=== PATIENT | female | born 1985 | race Caucasian/White ===

== ENCOUNTER 2016-08-15 03:01 | Emergency (ER) | payer OTHER ==
[~2016-08-15] VITALS: Ht 175.3 cm; Wt 126.9 kg
[2016-08-15 03:05] VITALS: Ht 175.3 cm; Wt 126.9 kg
[2016-08-15] MEDS ORDERED: SODIUM CHLORIDE 0.9% 1000ML 1,000 ML IV ONE ×2 (03:30)
[2016-08-15 03:41] VITALS: TEMP 36.1
[2016-08-15 03:42] LABS: BASO % 0.2 %; BASO ABS # 0.03 K/uL (0-0.2); COMPLETE YES; EOS % 0.6 %; HEMATOCRIT 37.3 % (37-47); IG% 0.3 %; LYMPH % 14.3 %; MEAN CORPUSCULAR HEMOGLOBIN 28.6 pg (25-34); MONO % 4.2 %; NEUT % 80.4 %; PLATELET COUNT 367 K/uL (130-400); RED BLOOD COUNT 4.44 M/uL (4.2-5.4); WHITE BLOOD COUNT 14.68 K/uL (4.8-10.8)
[2016-08-15] MEDS ORDERED: ONDANSETRON INJ 2 MG/ML 2 ML VIAL IV STA ×2 (04:03→05:48)
[2016-08-15 04:06] LABS: BUN/CREATININE RATIO 13.5 (10-20); CALCIUM 8.5 mg/dl (8.5-10.1); CREATININE 0.91 mg/dl (0.60-1.20); POTASSIUM 3.2 mmol/L (3.5-5.1)
[2016-08-15 04:09] LABS: ALB/GLOB RATIO 0.9 (0.9-2)
[2016-08-15] MEDS ORDERED: BCPILLS PO (04:13)
[2016-08-15 04:37] LABS: URINE BILIRUBIN NEG (NEG); URINE COLOR YELLOW; URINE NITRITE NEG (NEG); URINE PH 5.5 (4.5-7.5); URINE SPECIFIC GRAVITY >= 1.030 (1.000-1.030); UROBILINOGEN NEG (NEG)
[2016-08-15 04:48] LABS: MANUAL MICROSCOPIC REQUIRED? NO; REVIEW REQ? NO
[2016-08-15 04:49] LABS: URINE APPEARANCE CLOUDY (CLEAR); ZZUR CULT IF INDIC CLEAN CATCH YES
[2016-08-15] MEDS ORDERED: KETOROLAC TROMETHAMINE 30 MG/ML VIAL IV STA (05:48)
[2016-08-15] MEDS ORDERED: CEFTRIAXONE SOD INJ 1 GM ADDVIAL IV STA (05:48)
[2016-08-15] MEDS ORDERED: CEFD300C2 PO (06:10)
[2016-08-15] MEDS ORDERED: ONDANSETRON HOME PACK 4MG OD TAB PO ONE (06:15)
--- NOTE | 2016-08-15 06:47 | DIAGNOSTIC IMAGING REPORT ---
ABDOMEN AND PELVIS CT WITHOUT CONTRAST CT DOSE: 1171.92 mGy.cm HISTORY: Pain Right low abd pain. TECHNIQUE: Multiaxial CT images of the abdomen and pelvis were performed without contrast. COMPARISON STUDY: None. FINDINGS: The lung bases are clear. The unenhanced liver, spleen, gallbladder, pancreas, kidneys, and adrenal glands are within normal limits. No bowel wall thickening or obstruction. The pelvic organs are unremarkable. No suspicious lytic or blastic osseous lesions. Mild fullness right renal collecting system and right ureter. Possible 1 mm calculus distal right ureter. IMPRESSION: 1. Possible minimal 1 mm calculus distal right ureter. 2. Mild right hydroureteronephrosis. 3. Nonobstructing bowel pattern. Electronically signed by: Abdelrahman Martinez M.D. 08/15/2016 6:46 AM Dictated Date/Time: 08/15/2016 6:44 AM
[2016-08-15 06:51] VITALS: BP 126/84; PULSE 73; O2SAT 100
--- NOTE | 2016-08-15 07:00 | EMERGENCY ROOM VISIT NOTE ---
History First contact with patient: 03:12 Chief Complaint: URINARY SYMPTOMS Stated Complaint: UTI. LOWER RIGHT FLANK PAIN, FEVER History of Present Illness The patient is a 30 year old female who presents to the Emergency Room with complaints of urinary frequency and hesitancy for the past 4 or 5 hours. She states that she is having some discomfort into her right sided back as well. The patient's symptoms are new for her, and she states that she feels like she has a urinary tract infection. She states that she has had a low-grade fever, but was otherwise doing well today. The pain is worse with urination, she does not seem to worsen or improve with activity. She is nauseated without vomiting. She denies chance of . Review of Systems More than 10 systems were reviewed and otherwise negative with the exception of history of present illness. Past Medical/Surgical History No chronic medical disease Family History No pertinent family history Social History Smoking Status: Never Smoker Occupation Status: employed Current/Historical Medications Scheduled Control Pills ( Control Pills), 1 TAB PO DAILY Cefdinir (Omnicef), 300 MG PO Q12H Allergies Uncoded Allergies: GENERAL ANESTHESIA (Adverse Reaction, Intermediate, N/V, 08/15/16) Physical Exam Vital Signs Date Time Temp Pulse Resp B/P Pulse Ox O2 Delivery O2 Flow Rate FiO2 08/15/16 06:51 73 16 126/84 100 Room Air 08/15/16 04:41 85 18 143/46 98 Room Air 08/15/16 03:41 36.1 08/15/16 03:05 73 18 141/81 97 Room Air Physical Exam VITALS: Vitals are noted on the nurse's note and reviewed by myself. Vital signs stable. GENERAL: Well-developed, well-nourished, white female, who is in no acute distress and resting comfortably. Patient is cooperative with the examination. HEAD: Normocephalic atraumatic. HEART: Regular rate and rhythm without murmurs gallops or rubs. LUNGS: Clear to auscultation bilaterally without wheezes, rales or rhonchi. No retractions or accessory muscle use. ABDOMEN: Positive normal bowel sounds x 4. Soft with mild significant right lower quadrant abdominal tenderness on palpation. No rebound or guarding. No CVA tenderness. MUSCULOSKELETAL: No muscle atrophy, erythema, or edema noted. Full range of motion without joint tenderness in all extremities. Medical Decision & Procedures ER Provider Diagnostic Interpretation: Preliminary Findings Only See Final Report For Complete Findings CT ABDOMEN & PELVIS: Gallbladder is surgically absent. Liver, spleen, pancreas, and adrenal are within normal limits. There is mild hydronephrosis of the right kidney without visible obstructing stone or lesion. There is mild stranding about the proximal right ureter. Findings may indicate recently passed urinary stone or possibly pyelonephritis. Correlation with urinalysis is recommended. Left kidney is normal. No evidence of bowel obstruction, appendicitis, or diverticulitis. No free fluid or free air. Uterus and urinary bladder are unremarkable. No acute osseous findings. Laboratory Results 08/15/16 03:30 Red Blood Count 4.44, Mean Corpuscular Volume 84.0, Mean Corpuscular Hemoglobin 28.6, Mean Corpuscular Hemoglobin Concent 34.0, Mean Platelet Volume 10.0, Neutrophils (%) (Auto) 80.4, Lymphocytes (%) (Auto) 14.3, Monocytes (%) (Auto) 4.2, Eosinophils (%) (Auto) 0.6, Basophils (%) (Auto) 0.2, Neutrophils # (Auto) 11.79, Lymphocytes # (Auto) 2.10, Monocytes # (Auto) 0.62, Eosinophils # (Auto) 0.09, Basophils # (Auto) 0.03 08/15/16 03:30 Test 08/15/16 03:25 08/15/16 03:30 08/15/16 04:30 Urine Test NEG (NEG) White Blood Count 14.68 K/uL (4.8-10.8) Red Blood Count 4.44 M/uL (4.2-5.4) Hemoglobin 12.7 g/dL (12.0-16.0) Hematocrit 37.3 % (37-47) Mean Corpuscular Volume 84.0 fL (80-100) Mean Corpuscular Hemoglobin 28.6 pg (25-34) Mean Corpuscular Hemoglobin Concent 34.0 g/dl (32-36) Platelet Count 367 K/uL (130-400) Mean Platelet Volume 10.0 fL (7.4-10.4) Neutrophils (%) (Auto) 80.4 % Lymphocytes (%) (Auto) 14.3 % Monocytes (%) (Auto) 4.2 % Eosinophils (%) (Auto) 0.6 % Basophils (%) (Auto) 0.2 % Neutrophils # (Auto) 11.79 K/uL (1.4-6.5) Lymphocytes # (Auto) 2.10 K/uL (1.2-3.4) Monocytes # (Auto) 0.62 K/uL (0.11-0.59) Eosinophils # (Auto) 0.09 K/uL (0-0.5) Basophils # (Auto) 0.03 K/uL (0-0.2) RDW Standard Deviation 39.8 fL (36.4-46.3) RDW Coefficient of Variation 13.3 % (11.5-14.5) Immature Granulocyte % (Auto) 0.3 % Immature Granulocyte # (Auto) 0.05 K/uL (0.00-0.02) Anion Gap 11.0 mmol/L (3-11) Est Creatinine Clear Calc Drug Dose 129.1 ml/min Estimated GFR () 98.1 Estimated GFR (Non- 84.7 BUN/Creatinine Ratio 13.5 (10-20) Calcium Level 8.5 mg/dl (8.5-10.1) Total Bilirubin 0.2 mg/dl (0.2-1) Aspartate Amino Transf (AST/SGOT) 6 U/L (15-37) Alanine Aminotransferase (ALT/SGPT) 22 U/L (12-78) Alkaline Phosphatase 81 U/L (45-117) Total Protein 7.8 gm/dl (6.4-8.2) Albumin 3.7 gm/dl (3.4-5.0) Globulin 4.1 gm/dl (2.5-4.0) Albumin/Globulin Ratio 0.9 (0.9-2) Lipase 113 U/L (73-393) Urine Color YELLOW Urine Appearance CLOUDY (CLEAR) Urine pH 5.5 (4.5-7.5) Urine Specific [place] >= 1.030 (1.000-1.030) Urine Protein 2+ (NEG) Urine Glucose (UA) NEG (NEG) Urine Ketones NEG (NEG) Urine Occult Blood 3+ (NEG) Urine Nitrite NEG (NEG) Urine Bilirubin NEG (NEG) Urine Urobilinogen NEG (NEG) Urine Leukocyte Esterase NEG (NEG) Medications Administered Medications (Trade) Dose Ordered Sig/Shy Route Start Time Stop Time Status Last Admin Dose Admin Sodium Chloride 1,000 ml @ 999 mls/hr Q1H1M ONCE IV 08/15/16 03:30 08/15/16 04:30 DC 08/15/16 03:36 999 MLS/HR Sodium Chloride (Nss 1000ml) 1,000 ml @ 999 mls/hr Q1H1M ONCE IV 08/15/16 03:30 08/15/16 04:30 DC 08/15/16 03:30 999 MLS/HR Ondansetron HCl (Zofran Inj) 4 mg NOW STAT IV 08/15/16 04:03 08/15/16 04:04 DC 08/15/16 04:07 4 MG Ceftriaxone Sodium (Rocephin Inj) 1 gm NOW STAT IV 08/15/16 05:48 08/15/16 05:49 DC 08/15/16 06:04 1 GM Ketorolac Tromethamine (Toradol Inj) 30 mg NOW STAT IV 08/15/16 05:48 08/15/16 05:50 DC 08/15/16 06:04 30 MG Ondansetron HCl (Zofran Inj) 4 mg NOW STAT IV 08/15/16 05:48 08/15/16 05:50 DC 08/15/16 06:02 4 MG Ondansetron HCl (ZOFRAN ODT 4MG Home Pack) 1 homepack UD ONCE PO 08/15/16 06:15 08/15/16 06:16 DC 08/15/16 06:50 1 HOMEPACK ED Course Physical exam and history were performed. Nursing notes and EMR were reviewed. Patient appears to have dysuria and frequency for the past several hours. She feels that she has a urinary tract infection. On exam she does have some suprapubic and right lower quadrant abdominal tenderness. IV access was established and labs were obtained. I did offer the patient pain medication, but she declined. She did have one episode of emesis here in the department, and was given IV Zofran. The patient's blood work is as above and was reviewed. She does have an elevated white blood cell count of 14,000. She does not have a significant anemia, bandemia, or gross electrolyte imbalance. Her urine is with blood, and because of the elevated white count, urine symptoms, and reproducible tenderness additional CT scan of the abdomen and pelvis. CT scan is as above and was read by Margaret. She does not appear to have appendicitis or obvious ureteral calculi. The CT scan may show an early pyelonephritis. The patient continued to have some discomfort, and after discussing options of care with her, she was agreeable to IV Toradol. She was given 30 mg IV Toradol , 1 g IV Rocephin for possible UTI, and another 4 mg IV Zofran. Overall the patient does appear stable for discharge home. She will be given a continuation course of antibiotics. She is to follow with her PCP in the next few days for recheck of her condition. She was otherwise invited back to the ER anytime with new, worsening, or concerning symptoms. The chart was completed utilizing [employer] Speech Voice Recognition Software. Grammatical errors, random word insertions, pronoun errors, and incomplete sentences are an occasional consequence of this system due to software limitations, ambient noise, and hardware issues. Any formal questions or concerns about the content, text, or information contained within the body of this dictation should be directly addressed to the provider for clarification. . Medical Decision Differential diagnosis: Etiologies such as renal colic, appendicitis, diverticulitis, mesenteric ischemia, aortic pathology, infections, inflammatory bowel disease, PUD, biliary pathology, UTI, as well as others were entertained. Impression Primary Impression: Symptoms involving urinary system Departure Information Dispostion Home / Self-Care Condition GOOD Prescriptions Cefdinir (OMNICEF) 300 Mg Cap 300 MG PO Q12H for 7 Days, #14 CAP Prov: Chase Abdullahi PA-C 08/15/16 Referrals Lori Salgado DO (PCP) Forms HOME CARE DOCUMENTATION FORM, IMPORTANT VISIT INFORMATION Patient Instructions My [facility] Additional Instructions You were seen and evaluated today on an emergency basis only. This is not a substitute for, or an effort to provide, complete comprehensive medical care. It is not possible to recognize and treat all injuries or illnesses in a single emergency department visit. For this reason it is recommended that you followup with your primary care physician in the next 2-3 days for ongoing care and evaluation. For baseline pain relief you may alternate ibuprofen and acetaminophen every 4 hours for pain control. Take 600 mg ibuprofen (Advil) and then 4 hours later take 1000 mg acetaminophen (Tylenol). Do not take more than 3000 mg acetaminophen in a single day. Take Omnicef twice daily as prescribed Zofran (homepack) 1 tablet every 6 hrs as needed for nausea. You are welcome to return to the emergency department anytime with new, worsening, or concerning symptoms.
== END 2016-08-15 06:57 | disposition home or self-care (01) ==
LOC: C.EDB 03:03 → C.EDA 06:57
DX: R35.0 Frequency of micturition (principal); R39.11 Hesitancy of micturition; R10.813 Right lower quadrant abdominal tenderness

== ENCOUNTER → 2017-06-12 | Outpatient (CLI) | payer OTHER ==
[~2017-06-12] MED LIST: BCPILLS PO
== END | disposition home or self-care (01) ==
LOC: C.PAPS 11:49
PROVIDERS: ATTEND Obstetrics & Gynecology
DX: Z12.4 Encounter for screening for malignant neoplasm of cervix (principal)